=== PATIENT | male | born 1975 | race Caucasian/White ===

== ENCOUNTER 2017-07-01 20:21 | Inpatient (IN) | payer MEDICAID ==
[2017-07-01 21:38] LABS: BASO % 0.4 % (0.0-2.0); EOS # 0.2 K/uL (0.0-0.7); EOS % 2.7 % (0.0-4.0); HEMATOCRIT 38.7 % (35.0-51.0); LYMPH # 3.4 K/uL (1.0-4.3); MEAN CORPUSCULAR HEMOGLOBIN 29.4 pg (27.0-31.0); MEAN CORPUSCULAR HGB CONC 34.2 g/dL (33.0-37.0); MEAN PLATELET VOLUME 9.6 fL (7.2-11.7); MONO # 0.5 K/uL (0.0-0.8); MONO % 7.1 % (0.0-10.0); RED CELL DISTRIBUTION WIDTH 13.8 % (11.5-14.5); WHITE BLOOD COUNT 7.2 K/uL (4.8-10.8)
[2017-07-01 21:42] LABS: RBC URINE < 1 /hpf (0-3); TRANSITIONAL EPITHIAL < 1 /hpf (0-3); URINE BACTERIA RARE (<OCC); URINE BILIRUBIN NEGATIVE (NEGATIVE); URINE BLOOD NEGATIVE (NEGATIVE); URINE COLOR Yellow (YELLOW); URINE GLUCOSE (UA) NORMAL (Normal); URINE KETONE NEGATIVE (NEGATIVE); URINE LEUKOCYTE ESTERASE NEG Leu/uL (Negative); URINE PROTEIN NEGATIVE (NEGATIVE); URINE UROBILINOGEN NORMAL mg/dL (0.2-1.0); WBC URINE 1 /hpf (0-5)
[2017-07-01 21:47] LABS: CHLORIDE 100 mmol/L (98-107); SODIUM 140 mmol/L (132-148)
[2017-07-01 21:48] LABS: POTASSIUM 4.8 mmol/L (3.6-5.2)
[2017-07-01 21:50] LABS: ALB/GLOB RATIO 1.2 (1.0-2.1); ALKALINE PHOSPHATASE 57 U/L (38-126); ALT/SGPT 25 U/L (21-72); AST/SGOT 27 U/L (17-59); BILIRUBIN,TOTAL 0.7 mg/dL (0.2-1.3); BLOOD UREA NITROGEN 12 mg/dL (9-20); CALCIUM 8.6 mg/dl (8.6-10.4); CARBON DIOXIDE 28 mmol/L (22-30); GFR AFRICAN-AMERICAN > 60; GLUCOSE,RANDOM 87 mg/dL (75-110); TOTAL PROTEIN 7.6 g/dL (6.3-8.3)
[2017-07-01 21:51] LABS: ALCOHOL SERUM 43 mg/dl (0-10)
--- NOTE | 2017-07-01 22:05 | C.PDOC ---
History Of Present Illness 42 year old male who presents to the ER as a prescreen for heroin and ETOH detox. Last use was earlier today, denies physical complaints at this time. Time Seen by Provider: 07/01/17 21:29 Chief Complaint (Nursing): Substance Abuse History Per: Patient History/Exam Limitations: no limitations Onset/Duration Of Symptoms: Hrs Current Symptoms Are (Timing): Still Present Suicide/Self Injury Attempted (Context): None Associated Symptoms: denies: Depression, Suicidal Thoughts, Suicidal Plan Involuntary Hold By: None Recent travel outside of the [place]: No Past Medical History Reviewed: Historical Data, Nursing Documentation, Vital Signs Vital Signs: Last Vital Signs Temp 98.4 F 07/01/17 20:55 Pulse 72 07/01/17 20:55 Resp 20 07/01/17 20:55 BP 106/68 07/01/17 20:55 Pulse Ox 100 07/01/17 22:12 - Medical History PMH: No Chronic Diseases Surgical History: No Surg Hx Family History: States: Unknown Family Hx - Social History Hx Alcohol Use: Yes Hx Substance Use: Yes - Immunization History Hx Tetanus Toxoid Vaccination: No Hx Influenza Vaccination: No Hx Pneumococcal Vaccination: No Review Of Systems Constitutional: Negative for: Fever, Chills Gastrointestinal: Negative for: Nausea, Vomiting, Diarrhea Physical Exam - Physical Exam Appears: Non-toxic Skin: Normal Color, Warm, Dry Head: Atraumatic, Normacephalic Oral Mucosa: Moist Neck: Normal, Supple Chest: Symmetrical, No Tenderness Cardiovascular: Rhythm Regular, No Murmur Respiratory: Normal Breath Sounds, No Rales, No Rhonchi, No Wheezing Gastrointestinal/Abdominal: Soft, No Tenderness Neurological/Psych: Oriented x3, Normal Speech, Normal Cognition ED Course And Treatment - Laboratory Results Result Diagrams: 07/01/17 21:34 07/01/17 21:34 O2 Sat by Pulse Oximetry: 100 (Room air) Pulse Ox Interpretation: Normal Progress Note: Crisis contacted. Disposition Discussed With : Riley Santana Doctor Will See Patient In The: Hospital Counseled Patient/Family Regarding: Diagnosis - Disposition Disposition: HOSPITALIZED Disposition Time: 23:17 Condition: STABLE Forms: [facility] (Andorran) - POA Present On Arrival: None - Clinical Impression Clinical Impression: Alcohol abuse, Drug abuse - Scribe Statement The provider has reviewed the documentation as recorded by the Scribanya Lawrence All medical record entries made by the Yusef were at my direction and personally dictated by me. I have reviewed the chart and agree that the record accurately reflects my personal performance of the history, physical exam, medical decision making, and the department course for this patient. I have also personally directed, reviewed, and agree with the discharge instructions and disposition.
[2017-07-01 23:46] VITALS: RESP 18
[2017-07-02] MEDS ORDERED: Aluminum Hydroxide/Magnesium Hydroxide Susp (30 mL) PO PRN (00:19)
--- NOTE | 2017-07-02 01:23 | PCM.BM ---
<KapilSagrario J - Last Filed: 07/02/17 01:21> Treatment Plan Problems - Problems identified on initial assessmt Opiate Dependence Date Initiated: 07/02/17 Time Initiated: 01:22 Assessment reference: NA Status: Active Problem 2 Time Initiated: 01:23 Assessment reference: NA Status: Active Treatment assets and liabiliti Patient Assests: cooperative, ADL independent, negotiates basic needs Patient Liabilities: substance abuse - Milieu Protocol Maintain good personal hygiene: daily Encourage regular showers, daily Remind patient to perform daily oral care, daily Assist patient to perform ADL's Conduct patient checks and document Observation sheet: Q15 minutes Maintain personal safety: every shift Educate patient to report safety concerns to staff, every shift Monitor environment for contraband/sharps Medication safety: Monitor for expected outcome, potential side effects: every shift, Assess barriers to learning: every shift, Assess readiness for medication education: every shift <Consuelo Cutler - Last Filed: 07/02/17 12:01> Family Contact Family involvement: Famliy/SO not involved Family contact: Patient agrees to contact - Goals for Treatment Patient goals for treatment: Transition to [facility] after detox completion. Discharge/Continuing Care - Education Needs Education Needs: Patient Medication, Patient Diagnosis/Disease Process, Patient Coping Skills, Patient Anger Management skills, Patient Placement options, Patient Community resources - Discharge Discharge Criteria: Tolerates medication w/o severe side effects, Free of agitation, Normal sleep pattern, No longer exhibiting s/s of withdrawal, Reduction of target symptoms Discharge to:: Substance Abuse Rehab - Treatment Team Participation Patient/Family/SO Statement: 07/02/17 12:05 "I need a [facility] inpatient program". Discussed with Family/SO: No Was Patient/Family/SO present at Treatment Team Meeting: Yes <Jason Mccartney - Last Filed: 07/02/17 12:58> - Diagnosis (1) Opioid use disorder, severe, dependence Status: Acute Interventions: 07/02/17 12:57 * Assess 7x/week regarding severity of withdrawal * Educate regarding risks, benefits, side effects and alternatives of medications * Use Motivational Interviewing for abstinence * Use CBT for relapse prevention * Medication management for withdrawal symptoms * Encourage medication assisted treatment * (2) Alcohol use disorder, moderate, dependence Status: Acute Interventions: 07/02/17 12:57 * Assess 7x/week regarding severity of withdrawal * Educate regarding risks, benefits, side effects and alternatives of medications * Use Motivational Interviewing for abstinence * Use CBT for relapse prevention * Medication management for withdrawal symptoms * Encourage medication assisted treatment * (3) Phencyclidine (PCP) use disorder, severe, dependence Status: Acute Interventions: 07/02/17 12:58 * Assess 7x/week regarding severity of withdrawal * Educate regarding risks, benefits, side effects and alternatives of medications * Use Motivational Interviewing for abstinence * Use CBT for relapse prevention * Medication management for withdrawal symptoms * Encourage medication assisted treatment *
[2017-07-02] MEDS ORDERED: Multiple Vitamins Tab PO SCH (10:00)
--- NOTE | 2017-07-02 12:56 | PCM.PSYCH ---
Initial Psychiatric Evaluation - Initial Psychiatric Evaluation Type of Admission: Voluntary Legal Status: Capacity Chief Complaint (in patient's own words): "Heroin" History of Present Illness and Precipitating Events: The pt is seen, chart reviewed and case discussed. He is a 42 yo LM, single, living with his GF and 4 children aged 9 to 17. Unemployed He is here for 20-plus year heroin use, now up to 30 bags, IV. He was in detox 3x, rehab 2x and he had a 10 year clean time with halfway and meetings. He admits to also using PCP once a month, "lots of beer" since teens, Smokes 1 ppd cigarettes. No DTs or seizures He had some depression in the past and SI, but denies now. Pt claims he is in [facility] and was "about to sign out" this morning. Agreed with treatment now. Past psych admission: One admission when he was 20 y/o with SI. No current sxs or tx Medical hx: Kidney stones Family psych hx: Denies Current Medications: Active Medications Generic Name Dose Route Start Last Admin Trade Name Ronakq PRN Reason Stop Dose Admin Al Hydrox/Mg Hydrox/Simethicone 30 ml 07/02/17 00:19 Maalox 30 Ml PO TID PRN Indigestion / Heartburn Chlordiazepoxide 25 mg 07/02/17 12:00 07/02/17 11:12 Librium PO 07/06/17 11:59 25 mg Q6 MILLIE Administration Taper Chlordiazepoxide 25 mg 07/02/17 10:12 Librium PO Q4H PRN Alcohol Withdrawal Clonidine HCl 0.1 mg 07/02/17 00:19 Catapres PO Q8 PRN COWS Score More or Equal to 5 Folic Acid 1 mg 07/02/17 10:00 07/02/17 10:36 Folic Acid PO 1 mg DAILY MILLIE Administration Gabapentin 300 mg 07/02/17 14:00 Neurontin PO TID MILLIE Loperamide HCl 2 mg 07/02/17 00:19 Imodium PO Q8 PRN Diarrhea Lorazepam 1 mg 07/02/17 00:20 Ativan PO Q4H PRN Symptoms of alcohol withdrawl Methadone HCl 0 mg 07/03/17 10:00 Methadone PO 07/07/17 09:59 Q24H MILLIE Taper Multivitamins 1 tab 07/02/17 10:00 07/02/17 10:36 Hexavitamin PO 1 tab DAILY MILLIE Administration Ondansetron HCl 4 mg 07/02/17 00:19 Zofran Tab PO Q8 PRN Nausea/Vomiting Pneumococcal Polyvalent Vaccine 0.5 ml 07/05/17 10:00 Pneumovax 23 Vaccine IM 07/05/17 10:01 .ONCE ONE Thiamine HCl 100 mg 07/02/17 10:00 07/02/17 10:36 Vitamin B1 Tab PO 100 mg DAILY MILLIE Administration Trazodone HCl 100 mg 07/02/17 10:11 Desyrel PO HS PRN Insomnia Past Psychiatric History - Past Psychiatric History Previous Treatment History: Inpatient (at age 20) Pertinent Medical Hx (Current Medical&Sleep Prob, Allergies): Allergies Allergy/AdvReac Type Severity Reaction Status Date / Time No Known Allergies Allergy Unverified 07/01/17 20:59 Review of Systems - Neurological Neurological: UNREMARKABLE - Psychiatric Psychiatric: Abnormal Sleep Pattern, Anxiety, Difficulty Concentrating. absent : Depression, Hallucinations, Homicidal Ideation, Paranoia, Suicidal Ideation Mental Status Examination - Personal Presentation Personal Presentation: Looks older than stated age - Motor Activity Motor Activity: Other (restless) - Speech Speech: Organized - Mood Mood: Anxious - Formal Thought Process Formal Thought Process: No Impairment - Hallucinations/Delusions Hallucinations: Visual - Cognitive Functions Orientation: Person, Place, Situation, Time Sensorium: Alert Attention/Concentration: Attentive Estimate of Intelligence: Below average Judgement: Imparied, as evidence by: Poor judgement, Intact, as evidence by: Insight regarding need for hospitalization Memory: Recent intact, as evidence by: Ability to recall events of the day, Remote intact, as evidenced by: Abilit to recall sig. life events - Risk Risk: Withdrawal, Diminished functioning - Strength & Assets Inventory Strength & Assets Inventory: Cooperative - Limitations Limitations: Other DSM 5 DX - DSM 5 DSM 5 Diagnosis: Opioid withdrawal Opioid use d/o - severe PCP use d/o - severe Alcohol use d/o - severe Tobacco use d/o - severe Personality d/o - unspecified - Recommended/Plan of Treatment Treatment Recommendations and Plan of Treatment: Methadone detox Gabapentin for augmentation prn ativan for PCP Patch for nicotine Alcohol wdw treatment As needed meds and vitamins Attend groups and activities RI for abstinence and CBT for relapse prevention Support and psychoeducation Consider and encourage MAT Refer to after care 33 min Projected ELOS: 4-5 days Prognosis: good w treatment - Smoking Cessation Smoking Cessation Initiated: Yes
[2017-07-02 15:35] VITALS: BP 108/54; PULSE 50; TEMP 98.4; O2SAT 98
--- NOTE | 2017-07-02 22:47 | PCM.PYCHDC ---
Mental Status Examination - Mental Status Examination Orientation: Person, Place, Situation, Time Memory: Intact Mood: Anxious Affect: Constricted Speech: Appropriate Attention: WNL Concentration: Poor Association: WNL Fund of Knowledge: Poor Formal Thought Process: No Impairment Suicidal Ideation: No Current Homicidal Ideation?: No Discharge Summary - Discharge Note Reason for Hospitalization: Heroin detox, pcp and alcohol use d/o Consultations:: List each consultation separately and include: 1. Reason for request. 2. Findings. 3. Follow-up Summary of Hospital Course include:: 1. Description of specific treatment plan utilized for patients during their course of treatmen. 2. Summarize the time- course for resolution of acute symptoms and/or regressed behaviors. 3. Describe issues identified and worked on during hospitalization. 4. Describe medication utilized. 5. Describe medical problems identified and treated. 6. Reassessment of suicide risk Summary of Hospital Course: The pt was admitted and started on treatment with psychotherapy, support, psychoeducation and medications. WA and CBT used. The pt did not attend much groups and activities, as well as milieu therapy. All the risks and benefits of medications are discussed and the patient understood and agreed. After care discussed with the patient. He was interested in [facility] rehab However, the next day despite starting on detox and having no breakthru sxs he decided to leave AMA All risks discussed, incl. relapse, OD and even and he still left. He said he was "not ready" DYFS to be called. - Final Diagnosis (DSM 5) Condition upon Discharge: STABLE DSM 5: Opioid withdrawal Opioid use d/o - severe PCP use d/o - severe Alcohol use d/o - severe Tobacco use d/o - severe Personality d/o - unspecified Disposition: AGAINST MEDICAL ADVICE Follow-up Treatment Plan: Use relapse prevention skills. Return to ER or call 911 if suicidal, homicidal or symptoms relapse. Stay away from stress, alcohol and drugs. Use relaxation techniques. See primary doctor once a year and get labs. Consider MAT - Smoking Cessation Smoking Cessation Medication prescribed: No - Antipsychotic Medications Pt discharged on 2 or more routine antipsychotic medications: No
[2017-07-05] MEDS ORDERED: Pneumococcal 23-Valent Vaccine IM ONE (10:00)
== END 2017-07-02 17:00 | disposition left against medical advice (07) | DRG 743 ==
LOC: C.ER 20:21 → C.7D 23:17
PROVIDERS: ADMIT Psychiatry & Neurology Psychiatry; ATTEND Psychiatry & Neurology Psychiatry
DX: F11.20 Opioid dependence, uncomplicated (principal); F16.20 Hallucinogen dependence, uncomplicated; F10.20 Alcohol dependence, uncomplicated